=== PATIENT | female | born 1955 ===

== ENCOUNTER 2021-04-26 05:50 | Day surgery (SDC) | payer OTHER ==
[~2021-04-26 05:50] MED LIST: 8 HOUR650 MG PO; COZAAR25 MG PO; CRESTOR20 MG PO; HYDRALAZINE HCL25 MG PO; SYNTHROID100 MCG PO; SYSTANE ULTRA 010 ML OP; TIMOLOL MALEATE OP; TOPROL XL50 M1 PO
[2021-04-26] MEDS ORDERED: KETO10TA2 PO (08:53)
[2021-04-26] MEDS ORDERED: PERCOCET 5-3251 EACH PO (08:53)
[2021-04-26] MEDS ORDERED: NEURONTIN300 MG PO (08:54)
[2021-04-26] MEDS ORDERED: DERMOPLAST PAIN78 GM TOP (08:55)
== END 2021-04-26 13:55 | disposition home or self-care (01) ==
LOC: CIR.AMB 05:50 → EDBD 09:45 → CIR.AMB 09:45
PROVIDERS: ATTEND Surgery
DX: K64.8 Other hemorrhoids (principal); K64.4 Residual hemorrhoidal skin tags; K64.2 Third degree hemorrhoids; Z20.822 Contact with and (suspected) exposure to COVID-19

== ENCOUNTER 2021-10-21 06:45 | Day surgery (SDC) | payer OTHER ==
[~2021-10-21 06:45] MED LIST changes: +DERMOPLAST PAIN78 GM TOP; +KETO10TA2 PO; +NEURONTIN300 MG PO; +PERCOCET 5-3251 EACH PO
[2021-10-21] MEDS ORDERED: ANALPRAM HC 2.530 GM RECTAL (11:22)
== END 2021-10-21 12:30 | disposition home or self-care (01) ==
LOC: AMB-ENDOS 06:45
PROVIDERS: ATTEND Surgery
DX: K62.89 Other specified diseases of anus and rectum (principal); K64.8 Other hemorrhoids; Z20.822 Contact with and (suspected) exposure to COVID-19